=== PATIENT | male | born 1945 | race African-American/Black ===

== ENCOUNTER → 2018-12-06 | Outpatient (CLI) | payer MEDICARE | LOC: CAT 11:11 | DX: J43.9 Emphysema, unspecified (principal); M41.84 Other forms of scoliosis, thoracic region; M47.814 Spondylosis without myelopathy or radiculopathy, thoracic region ==

== ENCOUNTER → 2019-03-17 | Outpatient (CLI) | payer MEDICARE | LOC: CAT 11:35 | DX: R91.1 Solitary pulmonary nodule (principal); I25.10 Atherosclerotic heart disease of native coronary artery without angina pectoris; J43.2 Centrilobular emphysema ==